=== PATIENT | male | born 2000 | race Two or more races ===

== ENCOUNTER 2024-10-31 02:10 | Emergency (ER) | payer BC ==
[~2024-10-31] VITALS: Ht 172.7 cm; Wt 81.6 kg
[2024-10-31] MEDS ORDERED: TOBR5DRO LEFTEYE (03:05)
[2024-10-31 03:11] VITALS: BP 137/78; TEMP 99.1; O2SAT 98
== END 2024-10-31 03:11 | disposition home or self-care (01) ==
LOC: ER 02:18
DX: H10.9 Unspecified conjunctivitis (principal)